=== PATIENT | female | born 1960 | race Caucasian/White ===

== ENCOUNTER 2019-03-30 16:20 | Emergency (ER) | payer OTHER ==
[~2019-03-30] VITALS: Ht 154.9 cm; Wt 51.7 kg
[2019-03-31] MEDS ORDERED: ZOFRAN8 MG PO (01:05)
[2019-03-31] MEDS ORDERED: ZANTAC150 MG PO (01:05)
[2019-03-31] MEDS ORDERED: augmentin PO (01:05)
== END 2019-03-31 01:20 | disposition home or self-care (01) ==
LOC: ER 16:20
DX: N39.0 Urinary tract infection, site not specified (principal); R10.84 Generalized abdominal pain; R11.11 Vomiting without nausea

== ENCOUNTER 2021-05-03 23:28 | Emergency (ER) | payer OTHER ==
[~2021-05-03] VITALS: Ht 160 cm; Wt 52.2 kg
[~2021-05-03 23:28] MED LIST: ZANTAC150 MG PO; ZOFRAN8 MG PO; augmentin PO
[2021-05-04] MEDS ORDERED: METRONIDAZOLE500 MG PO (06:35)
[2021-05-04] MEDS ORDERED: PEPCID AC20 MG PO (06:35)
[2021-05-04] MEDS ORDERED: CIPRO500 MG PO (06:35)
[2021-05-04] MEDS ORDERED: ACETAMINOPHEN650 M2 PO (06:35)
[2021-05-04] MEDS ORDERED: LEVSIN0.125 MG PO (06:35)
[2021-05-04] MEDS ORDERED: INTESTINEX680 M2 PO (06:35)
== END 2021-05-04 06:50 | disposition home or self-care (01) ==
LOC: ER 23:28
DX: R10.9 Unspecified abdominal pain (principal)

== ENCOUNTER 2021-05-05 22:55 | Emergency (ER) | payer OTHER ==
[~2021-05-05] VITALS: Ht 157.5 cm; Wt 52.2 kg
[~2021-05-05 22:55] MED LIST changes: +ACETAMINOPHEN650 M2 PO; +CIPRO500 MG PO; +INTESTINEX680 M2 PO; +LEVSIN0.125 MG PO; +METRONIDAZOLE500 MG PO; +PEPCID AC20 MG PO
== END 2021-05-06 09:50 | disposition home or self-care (01) ==
LOC: ER 22:55
DX: K59.00 Constipation, unspecified (principal); R10.84 Generalized abdominal pain

== ENCOUNTER 2023-03-09 10:38 | Emergency (ER) | payer OTHER ==
[~2023-03-09] VITALS: Ht 154.9 cm; Wt 50.8 kg
== END 2023-03-09 15:16 | disposition home or self-care (01) ==
LOC: ER 10:38
DX: U07.1 COVID-19 (principal); R53.81 Other malaise; Z91.013 Allergy to seafood